=== PATIENT | female | born 2005 | race Caucasian/White ===

== ENCOUNTER 2025-06-15 14:14 | Outpatient (CLI) | payer BC, SELFPAY | END 2025-06-15 14:15 | disposition home or self-care (01) | PROVIDERS: Visit Provider Family Medicine | DX: L30.9 Dermatitis, unspecified (principal); L85.3 Xerosis cutis; R53.83 Other fatigue; Z86.19 Personal history of other infectious and parasitic diseases; Z13.6 Encounter for screening for cardiovascular disorders | CPT/HCPCS: 80053; 80061; 84443; 86706; 86803; 87340 ==